=== PATIENT | female | born 1965 | race Asian ===

== ENCOUNTER → 2018-01-02 | Outpatient (CLI) | payer MEDICAID | LOC: BMCIMAGING 12:22 | PROVIDERS: ATTEND Internal Medicine | DX: M25.352 Other instability, left hip (principal); Q65.89 Other specified congenital deformities of hip ==

== ENCOUNTER → 2018-05-14 | Outpatient (CLI) | payer MEDICAID | LOC: BMCIMAGING 14:58 | PROVIDERS: ATTEND Internal Medicine | DX: R07.9 Chest pain, unspecified (principal); R06.00 Dyspnea, unspecified ==

== ENCOUNTER → 2018-06-06 | Outpatient (CLI) | payer MEDICAID | LOC: FIMAGING 10:24 | PROVIDERS: ATTEND Podiatrist Foot & Ankle Surgery | DX: R22.41 Localized swelling, mass and lump, right lower limb (principal) ==

== ENCOUNTER 2018-06-08 10:35 | Emergency (ER) | payer MEDICAID ==
--- NOTE | 2018-06-08 11:10 | EDPHY ---
General Time Seen by Provider: 06/08/18 10:57 Narrative: CHIEF COMPLAINT: Cough HISTORY OF PRESENT ILLNESS: Patient presents by private vehicle with complaints of cough. Symptoms started 10 days ago. She says they have worsened over the past 3 days more so. Keeping her up at night. Sometimes productive, sometimes not. She associates it with subjective fever and body aches at times. She also has runny nose and sinus congestion. She has no chest pain. She has no abdominal urinary complaints. No rash. No neck pain. No headache. She took ibuprofen 7 days ago with no improvement. No other associated complaints or modifying factors. REVIEW OF SYSTEMS: 10 systems were reviewed and negative with the exception of the elements mentioned in the history of present illness. PCP: Dr. Mini Mclean SPECIALISTS: None PAST MEDICAL HISTORY: Uncomplicated PAST SURGICAL HISTORY: No recent surgery SOCIAL HISTORY: Never smoker. 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 Nontoxic well-appearing. Head: normocephalic, atraumatic Eyes: Pupils equal and round, no conjunctival pallor or injection ENT, Mouth: Mucous membranes moist. Sinus drainage and postnasal drip. Airway widely patent without erythema or edema. Neck: Normal inspection, supple, non-tender. No meningismus or rigidity. Respiratory: Mild rhonchi. No wheezing. No crackles. No diminishment or consolidation. No retractions or distress. Cardiovascular: Regular rate and rhythm Gastrointestinal: Abdomen is soft and nontender Back: non-tender, no bony abnormalities Neurological: A&O, nonfocal, normal gait Skin: Warm and dry, no rash Extremities: Nontender, no pedal edema Psychiatric: Mood and affect normal DIFFERENTIAL DIAGNOSES: Including but not limited to viral bronchitis, bacterial bronchitis, pneumonia, pneumonitis, bronchiectasis, influenza MDM: 11:00 a.m. Ten days history cough, congestion with some body aches. Patient's history examination suggest bronchitis over less likely pneumonia or influenza. She has normal vital signs with no respiratory distress or labored breathing. No abdominal complaints. I have ordered a chest x-ray and will re-evaluate. I do not feel she warrants any further testing at this time. 11:50 a.m. Chest x-ray negative for pneumonia. Evidence of airway disease with some plugging versus bronchiectasis. Vital signs are within normal limits. I re- evaluated the patient. SUPERVISION: This patient was independently evaluated without direct involvement of or examination by the attending physician. CONSULTATION: None - Diagnostics Imaging Results: Imaging Impressions Chest X-Ray 06/08/18 11:10 Impression: Findings compatible with airways disease noted. Focal right perihilar nodular opacity could reflect bronchial plugging or atelectasis with follow up to be considered as clinically directed. - History Smoking Status: Never smoked - Objective Vital Signs: Initial Vital Signs Temperature (C) 99.0 F 06/08/18 10:39 Heart Rate 78 06/08/18 10:39 Respiratory Rate 16 06/08/18 10:39 Blood Pressure 135/88 H 06/08/18 10:39 O2 Sat (%) 98 06/08/18 10:39 O2 Delivery Mode Room Air Allergies/Adverse Reactions: acetaminophen [From Percocet] Allergy (Verified 06/08/18 10:38) oxycodone [From Percocet] Allergy (Verified 06/08/18 10:38) Home Medications: Medication Instructions Recorded Benzonatate [Tessalon Pearles (RX)] 100 mg PO Q8 PRN #15 cap 06/08/18 Dexamethasone [Decadron 4 MG (*)] 8 mg PO ONCE #2 tab 06/08/18 Departure - Departure Disposition: Home, Routine, Self-Care Clinical Impression: Acute bronchitis Qualifiers: Bronchitis organism: unspecified organism Qualified Code(s): J20.9 - Acute bronchitis, unspecified Condition: Good Instructions: Acute Bronchitis (ED) Additional Instructions: 1. Decadron prescription x1 today 2. Delsym over the counter as directed as needed for cough 3. Mucinex [id number] as directed as needed for mucus and congestion 4. Pseudoephedrine [id number]-[id number] as directed as needed for sinus congestion or runny nose 5. Tessalon Perles as prescribed as needed for cough 6. Fisherman's friend cough drops [id number] as needed for cough Referrals: Mini Mclean MD [Primary Care Provider] - As per Instructions Prescriptions: Benzonatate [Tessalon Pearles (RX)] 100 mg PO Q8 PRN #15 cap PRN Reason: Cough, Mild Dexamethasone [Decadron 4 MG (*)] 8 mg PO ONCE #2 tab
[2018-06-08 12:06] VITALS: BP 102/69
== END 2018-06-08 12:05 | disposition home or self-care (01) ==
DX: J20.9 Acute bronchitis, unspecified (principal)

== ENCOUNTER 2018-06-30 07:00 | Day surgery (SDC) | payer MEDICAID ==
[2018-06-30] MEDS ORDERED: ceFAZolin 2 GM/DEXTROSE 100 ML IV ONE (07:04)
[2018-06-30] MEDS ORDERED: LR 1,000 ML IV ONE (07:05)
[2018-06-30] MEDS ORDERED: MIDAZOLAM 2 MG/2 ML VIAL IVP ONE (07:36)
[2018-06-30] MEDS ORDERED: SCOPOLAMINE HYDROBROMIDE 1 MG/3 DAYS PATCH TD ONE (07:36)
--- NOTE | 2018-06-30 07:36 | PDANEPAE ---
ANE Past Medical History - Cardiovascular History Hx Hypertension: No Hx Arrhythmias: No Hx Chest Pain: No Hx Coronary Artery / Peripheral Vascular Disease: No Hx CHF / Valvular Disease: No Hx Palpitations: No Cardiovascular History Comment: PT STATES MENOPAUSAL MILD BP ELEV - Pulmonary History Hx COPD: No Hx Asthma/Reactive Airway Disease: No Hx Recent Upper Respiratory Infection: No Hx Oxygen in Use at Home: No Hx Sleep Apnea: No Sleep Apnea Screening Result - Last Documented: Negative Pulmonary History Comment: COUGH & BRONCHITIS SXS 2 WKS AGO - SEEN IN ER - Neurologic History Hx Cerebrovascular Accident: No Hx Seizures: No Hx Dementia: No - Endocrine History Hx Diabetes: No - Renal History Hx Renal Disorders: No - Liver History Hx Hepatic Disorders: No - Neurological & Psychiatric Hx Hx Neurological and Psychiatric Disorders: No - Cancer History Hx Cancer: No - Congenital Disorder History Hx Congenital Disorders: No - GI History Hx Gastrointestinal Disorders: No - Other Health History Other Health History: OCCAS HIVES FROM ALLERGIES - Chronic Pain History Chronic Pain: Yes (R FOOT & ELIN HIP,NECK & BACK) - Surgical History Prior Surgeries: 2003 ANKLE REPAIR. 2013 HARDWARE REMOVAL. 2001 C SECTION. BREAST IMPLANTS. 2017 HEMORRHOID ANE Review of Systems Review of Systems: - Exercise capacity METS (RN): 5 METS ANE Patient History - Allergies Allergies/Adverse Reactions: oxycodone [From Percocet] Allergy (Verified 06/26/18 15:51) NAUSEA & VOMITING - Home Medications Home Medications: Ibuprofen 06/26/18 [Last Taken 06/25/18] - NPO status NPO Since - Liquids (Date): 06/30/18 NPO Since - Liquids (Time): 00:00 NPO Since - Solids (Date): 06/29/18 NPO Since - Solids (Time): 18:00 - Smoking Hx Smoking Status: Former smoker ANE Labs/Vital Signs - Vital Signs Height: 162.56 cm Weight: 56.245 kg ANE Physical Exam - Airway Neck exam: FROM Mallampati Score: Class 1 Mouth exam: normal dental/mouth exam - Pulmonary Pulmonary: clear to auscultation - Cardiovascular Cardiovascular: regular rate and rhythym - ASA Status ASA Status: II ANE Anesthesia Plan Anesthesia Plan: GA w LMA, MAC
[2018-06-30] MEDS ORDERED: BUPIVACAINE 0.5% 30 ML SDV ONE (07:43)
[2018-06-30] MEDS ORDERED: LIDOCAINE 2% 5 ML SDV ONE (07:44)
[2018-06-30] MEDS ORDERED: ceFAZolin 1 GM/5 ML SYR ONE (07:46)
--- NOTE | 2018-06-30 07:59 | PDHPUP ---
History & Physical Update H&P update statement: This history and physical update is based on an assessment of the patient which was completed after admission or registration (within 24 hours), but prior to the surgery/procedure. H&P update: H&P reviewed & patient examined
[2018-06-30] MEDS ORDERED: fentaNYL 100 MCG/2 ML INJ ONE (08:21)
[2018-06-30] MEDS ORDERED: PROPOFOL/EMULSION 500 MG/50 ML BOTTLE IV ONE (08:21)
[2018-06-30] MEDS ORDERED: ONDANSETRON 4 MG/2 ML VIAL ONE (08:43)
[2018-06-30] MEDS ORDERED: DEXAMETHASONE 4 MG/ML VIAL ONE ×2 (08:43→08:48)
[2018-06-30] MEDS ORDERED: PROMETHAZINE HCL 25 MG/ML INJ IVP PRN (08:51)
[2018-06-30] MEDS ORDERED: METOCLOPRAMIDE 10 MG/2 ML VIAL IVP PRN (08:51)
[2018-06-30] MEDS ORDERED: ONDANSETRON 4 MG/2 ML VIAL IVP PRN (08:51)
[2018-06-30] MEDS ORDERED: ALBUTEROL 3 ML DEYVIAL IH PRN (08:51)
[2018-06-30] MEDS ORDERED: LABETALOL HCL 5 MG/ML 20 ML MDV IVP PRN (08:51)
[2018-06-30] MEDS ORDERED: NALOXONE HCL 0.4 MG/ML INJ IVP PRN (08:51)
[2018-06-30] MEDS ORDERED: DIAZEPAM 5 MG/ML 1 ML SYR IVP PRN (08:51)
[2018-06-30] MEDS ORDERED: LR 500 ML IV PRN (08:51)
[2018-06-30] MEDS ORDERED: fentaNYL 100 MCG/2 ML INJ IVP PRN (08:51)
[2018-06-30] MEDS ORDERED: MEPERIDINE 25 MG/0.5 ML AMP IVP PRN (08:51)
[2018-06-30] MEDS ORDERED: ACETAMINOPHEN 500 MG TAB PO PRN (08:51)
--- NOTE | 2018-06-30 09:14 | POSTOPPROG ---
Post Op Note Date of Operation: 06/30/18 Surgeon: Avel Mcneil Injection Maintenance Technician: sita Anesthesiologist: MD Stephanie Anesthesia: IV Sedation Pre-op Diagnosis: 3rd IMS neuroma Post-op Diagnosis: same Indication: pain Procedure: 3rd IMS neurectomy Findings: neuroma, right foot Inf/Abcess present in the surg proc area at time of surgery?: No Depth: Deep Incisional (Fascial) EBL: Minimal
[2018-06-30 11:19] VITALS: BP 148/82
--- NOTE | 2018-07-01 08:36 | GOP ---
DATE OF OPERATION: 06/30/2018 SURGEON: Avel Mcneil DPM STATION INSTALLER: None. ANESTHESIA: Local with monitored anesthesia care. PREOPERATIVE DIAGNOSIS: Right third inner metatarsal space neuroma. POSTOPERATIVE DIAGNOSIS: Right third inner metatarsal space neuroma. PROCEDURE PERFORMED: Right third intermetatarsal space neurectomy. FINDINGS: SPECIMENS: Soft tissue mass was sent for permanent specimen. ESTIMATED BLOOD LOSS: Scant. INDICATIONS: Ms Wolff is an otherwise healthy 53-year-old woman who presented to my office with con tinued pain to the right forefoot for multiple months. We attempted 2 cortisone injections with mini mal effect. The patient understands the risks, benefits, and alternatives to the proposed procedure, and wishes to proceed. DESCRIPTION OF PROCEDURE: Under mild sedation, the patient was brought into the operating room, and placed on the operating table in the supine position. Following further IV sedation and infiltration of 2 g of IV Ancef, a regional forefoot block was obtained with 20 cc of 0.5% Marcaine plain. The f oot was then scrubbed, prepped, and draped in the usual aseptic manner. A sterile pneumatic tourniqu et was placed about the patient's well-padded superior malleolar area. An Esmarch bandage was utiliz ed to exsanguinate the patient's right foot, and the tourniquet was inflated to 250 mmHg. Attention was then directed to the area overlying the 3rd intermetatarsal space, where a 3 cm linear longitudinal incision was made in line and parallel to the long axes of the 3rd and 4th metatarsals. The incision was deepened via sharp and blunt dissection, care being taken to identify and retract a ll vital neural and vascular structures. All bleeders were ligated and cauterized as necessary. Fol lowing further deep dissection of the 3rd intermetatarsal space, the deep transverse metatarsal ligam ent was incised. A lamina administrative volunteer was used to visualize the intermetatarsal space. The common plan tar nerve running between the 3rd and 4th metatarsals was identified. This was noted to be enlarged and hypertrophied, consistent with the ultrasound taken prior to the procedure. The proximal and 2 d istal branches of this nerve were identified and followed as far distally and proximally as possible, respectively. 1 cc of dexamethasone phosphate was shared between all these branches. These were sh arply transected with a 15-blade. The neuroma was passed from the operative field and sent for kd iglesias specimen. The wound was flushed with copious amounts of sterile normal saline. The wound was c losed in layers. 3-0 Monocryl was used to close the subcutaneous tissues. The skin was closed with a horizontal mattress technique of 4-0 Prolene. The wound was dressed with Xeroform, and a sterile c ompressive dressing consisting of 4 x 4s and Marah. An Zane bandage was applied to the patient's righ t foot. The tourniquet was dropped. A prompt hyperemic response was noted to all digits of the righ t foot. The patient tolerated the procedure and anesthesia well. She was transferred to the recovery room wi th vital signs stable and vascular status intact to all digits of the right foot. Following a period of postoperative monitoring, the patient will be discharged home on the following written and oral postoperative instructions. 1. Keep dressing clean, dry, and intact. 2. Ice and elevate as instructed. 3. Use boot at all times when ambulating. 4. All followup questions and concerns should be directed toward [facility] at [phone]. HEMOSTASIS: A pneumatic ankle tourniquet at 250 mmHg for 22 minutes. MATERIALS: None. INJECTABLES: 20 cc of 0.5% Marcaine plain. COMPLICATIONS: None. /[id number]/MODL
== END 2018-06-30 11:48 | disposition home or self-care (01) ==
LOC: FSGY 07:00
PROVIDERS: ATTEND Podiatrist Foot & Ankle Surgery
PROC: 01B50ZZ Excision of Median Nerve, Open Approach (ICD-10-PCS; principal; 2018-06-30 08:30)
DX: G57.61 Lesion of plantar nerve, right lower limb (principal); Z87.891 Personal history of nicotine dependence
CPT/HCPCS: J0690; J1100; J2250; J2405; J2704; J3010

== ENCOUNTER → 2018-07-24 | Outpatient (CLI) | payer MEDICAID | LOC: FIMAGING 14:16 | PROVIDERS: ATTEND Podiatrist Foot & Ankle Surgery | DX: M79.671 Pain in right foot (principal); Z47.81 Encounter for orthopedic aftercare following surgical amputation ==

== ENCOUNTER → 2018-08-05 | Outpatient (CLI) | payer MEDICAID | LOC: FIMAGING 16:38 | PROVIDERS: ATTEND Podiatrist Foot & Ankle Surgery | DX: S96.811A Strain of other specified muscles and tendons at ankle and foot level, right foot, initial encounter (principal); S96.011A Strain of muscle and tendon of long flexor muscle of toe at ankle and foot level, right foot, initial encounter; M19.071 Primary osteoarthritis, right ankle and foot ==